=== PATIENT | male | born 1985 | race Two or more races ===

== ENCOUNTER 2020-09-24 08:28 | Emergency (ER) | payer OTHER ==
[~2020-09-24] VITALS: Ht 170.2 cm; Wt 75.2 kg
--- NOTE | 2020-09-24 08:58 | NUR ---
PT C/O LEFT LEG PAIN THAT STARTS AT THE KNEE AND RADIATES TO THE BACK. PT STATES HE WOKE UP IN PAIN. DENIES TRAUMA. PAIN 7/ INTACT CMS IN LL EXT.
[2020-09-24] MEDS ORDERED: KETOROLAC 30 MG/1 ML IM ONE (09:00)
[2020-09-24] MEDS ORDERED: KETOROLAC 30 MG/1 ML ONE (09:54)
[2020-09-24 10:01] VITALS: BP 124/76
--- NOTE | 2020-09-24 10:35 | NUR ---
PT REC'VD DISCHARGE INSTRUCTIONS AND EDUCATION. PT STATED NO FURTHER QUESTIONS. PT AMBULATED TO DC DESK, STEADY GAIT.
== END 2020-09-24 10:38 | disposition home or self-care (01) ==
LOC: ED 09:10
DX: S80.02XA Contusion of left knee, initial encounter (principal); X50.1XXA Overexertion from prolonged static or awkward postures, initial encounter; Y93.89 Activity, other specified; Y92.098 Other place in other non-institutional residence as the place of occurrence of the external cause; Y99.8 Other external cause status
CPT/HCPCS: 93971; 96372; 99284; J1885